=== PATIENT | female | born 1965 | race African-American/Black ===

== ENCOUNTER 2017-03-06 10:22 | Inpatient (IN) | payer BC ==
[2017-03-06 11:23] VITALS: BMI 33.3
--- NOTE | 2017-03-06 14:53 | HP ---
COWS - Scale Resting Pulse: 0= [place] 80 or Below Sweatin= No chills or Flushing Restless Observation: 3= Extraneous Movement Pupil Size: 2= Moderately Dilated Bone or Joint Aches: 4=Acute Joint/Muscle Pain Runny Nose/ Eye Tearin= Nasal Congestion GI Upset > 30mins: 2= Nausea/Diarrhea Tremor Observation: 1= Tremor [place], Not Seen Yawning Observation: 1= 1-2x During Session Anxiety or Irritability: 2=Irritable/Anxious Goose Flesh Skin: 0=Smooth Skin COWS Score: 16 CIWA Score - CIWA Score Nausea/Vomitin-Int. Nausea w/Dry Heave Muscle Tremors: 4-Moderate,w/Arms Extend Anxiety: 4-Mod. Anxious/Guarded Agitation: 4-Moderately Restless Paroxysmal Sweats: 1-Minimal Palms Moist Orientation: 0-Oriented Tacttile Disturbances: 3-Moderate Itch/Numb/Burn Auditory Disturbances: 0-None Visual Disturbances: 0-None Headache: 1-Very Mild CIWA-Ar Total Score: 21 Admission [facility] - HPI Chief Complaint: WITHDRAWAL SX FROM HEROIN AND ALCOHOL. Allergies/Adverse Reactions: Allergies Allergy/AdvReac Type Severity Reaction Status Date / Time dexamethasone [From Decadron] Allergy Severe Verified 03/06/17 12:10 dexamethasone sod phosphate Allergy Severe Verified 03/06/17 12:10 [From Decadron] History of Present Illness: 51 Y/O AA/FEMAL WITH A HX OF HEROIN,ALCOHOL AND COCAINE DEPENDENCE SEEKING DETOX [place]. Exam Limitations: No Limitations - Ebola screening Have you traveled outside of the country in the last 21 days: No Have you had contact with anyone from an Ebola affected area: No Have you been sick,other than usual withdrawal symptoms: No Do you have a fever: No - Review of Systems Constitutional: Chills, Loss of Appetite, Night Sweats, Changes in sleep, Unintentional Wgt. Loss EENT: reports: Tearing, Nose Congestion, Dental Problems (DENTURES) Respiratory: reports: Shortness of Breath (COPD HX), Wheezing Cardiac: reports: Lightheadedness GI: reports: Constipated, Diarrhea, Nausea, Vomiting, Abdominal cramping : reports: No Symptoms Reported Musculoskeletal: reports: Back Pain, Muscle Pain Integumentary: reports: Rash (DRY SKIN BETWEEN LEGS) Neuro: reports: Headache, Unsteady Gait, Dizziness Endocrine: reports: No Symptoms Reported Hematology: reports: Anemia (???) Psychiatric: reports: Orientated x3, Depressed (HX BIPOLAR) Other Systems: Reviewed and Negative Patient History - Patient Medical History Hx Anemia: Yes (NO MED) Hx Asthma: Yes (MDI) Hx Chronic Obstructive Pulmonary Disease (COPD): Yes (MDI) Hx Cardiac Disorders: No Hx Hypertension: No Hx Hypercholesterolemia: No HX Cerebrovascular Accident: No Hx Seizures: No (BLACKOUTS) Hx Diabetes: Yes (Type II-ON METFORMIN 500 MG BID) Hx Gastrointestinal Disorders: No Hx Genitourinary Disorders: No Hx Sexually Transmitted Disorders: No Hx Renal Disease (ESRD): Yes (KIDNEY STONES IN THE PAST) Hx Thyroid Disease: Yes (SYNTHROID 125 MCG DAILY) Hx Human Immunodeficiency Virus (HIV): No (NEGATIVE HX) Hx Hepatitis C: No Hx Depression: Yes Hx Suicide Attempt: No (DENIES) Hx Bipolar Disorder: Yes Hx Schizophrenia: No - Patient Surgical History Past Surgical History: Yes Hx Neurologic Surgery: No Hx Cataract Extraction: No Hx Cardiac Surgery: No Hx Lung Surgery: No Hx Breast Surgery: No Hx Breast Biopsy: No Hx Abdominal Surgery: No Hx Appendectomy: Yes (AT 13 YRS OLD) Hx Cholecystectomy: No Hx Genitourinary Surgery: No Hx Section: No Hx Orthopedic Surgery: No Hx Hysterectomy: No Anesthesia Reaction: No - PPD History Previous Implant?: Yes Documented Results: Negative w/o proof Implanted On Prior R Admission?: No PPD to be Administered?: Yes - Reproductive History Patient is a Female of Child Bearing Age (11 -55 yrs old): No LMP comment: 7 YRS AGO Patient : No - Smoking Cessation Smoking history: Current every day smoker Have you smoked in the past 12 months: Yes Aproximately how many cigarettes per day: 7 Hx Chewing Tobacco Use: No Initiated information on smoking cessation: Yes 'Breaking Loose' booklet given: 03/06/17 - Substance & Tx. History Hx Alcohol Use: Yes (TERRI/BEER) Hx Substance Use: Yes (HEROIN/COCAINE) Substance Use Type: Alcohol, Cocaine, Heroin Hx Substance Use Treatment: Yes (LAST TX AT [facility]) - Substances Abused Heroin Route: Inhalation Frequency: Daily Amount used: 10 BAGS Age of first use: 31 Date of Last Use: 03/06/17 Alcohol Route: Oral Frequency: Daily Amount used: 6PK BEER 1 FIFTH TERRI Age of first use: 41 Date of Last Use: 03/06/17 Cocaine Route: Smoking Frequency: Daily Amount used: 10 BAGS Age of first use: 31 Date of Last Use: 03/04/17 Family Disease History - Family Disease History Family Disease History: Diabetes: Father (HTN), Mother (HTN), Other: Father, Mother, Sister (ADDICTION) Admission Physical Exam [facility] - Vital Signs Vital Signs: Vital Signs - 24 hr 03/06/17 11:18 Temperature 96.0 F L Pulse Rate 73 Respiratory 18 Rate Blood Pressure 135/80 - Physical General Appearance: Yes: Moderate Distress, Irritable, Anxious HEENTM: Yes: EOMI, Normocephalic, RENEE, Pharynx Normal, Nasal Congestion Respiratory: Yes: Chest Non-Tender, Lungs Clear, Normal Breath Sounds, No Respiratory Distress Neck: Yes: No masses,lesions,Nodules, Supple, Trachea in good position Breast: Yes: Breast Exam Deferred Cardiology: Yes: Regular Rhythm, Regular Rate, S1, S2 Abdominal: Yes: Normal Bowel Sounds, Non Tender, Flat Genitourinary: Yes: Other (N/C) Musculoskeletal: Yes: full range of Motion, Gait Steady Extremities: Yes: Normal Range of Motion, Non-Tender Neurological: Yes: dietary cook II-XII NML intact, Fully Oriented, Alert, Motor Strength 5/5 Integumentary: Yes: Dry, Warm, Rash Lymphatic: Yes: Within Normal Limits - Diagnostic (1) Opioid dependence with withdrawal Current Visit: Yes Status: Acute (2) Alcohol dependence with uncomplicated withdrawal Current Visit: Yes Status: Acute (3) Cocaine dependence, uncomplicated Current Visit: Yes Status: Acute (4) COPD (chronic obstructive pulmonary disease) Current Visit: Yes Status: Chronic Qualifiers: COPD type: emphysema (5) Type 2 diabetes mellitus Current Visit: Yes Status: Chronic (6) Hypothyroidism Current Visit: Yes Status: Chronic Qualifiers: Hypothyroidism type: unspecified Qualified Code(s): E03.9 - Hypothyroidism , unspecified (7) Rash and nonspecific skin eruption Current Visit: Yes Status: Chronic Comment: THIGHS Cleared for Admission S - Detox or Rehab S Level of Care: Medically Managed Detox Regimen/Protocol: Methadone/Librium S Breath Alcohol Content Breath Alcohol Content: 0 Urine Pregancy Test - Result Urine Test Results: Negative- NO Line Present Urine Drug Screen - Results Drug Screen Negative: No Urine Drug Screen Results: IRIS-Cocaine, TCA-Tricyclic Antidepress, OXY-Oxycodone
[2017-03-06] MEDS ORDERED: guaiFENesin/D-METHORPHAN HB 10 ML UNIT-DOSE CUPS PO PRN (15:17)
[2017-03-06] MEDS ORDERED: LOPERAMIDE HCL 2 MG CAPSULE PO PRN (15:17)
[2017-03-06] MEDS ORDERED: P-EPHED 60MG/TRIPROLIDI 2.5MG TABLET PO PRN (15:17)
[2017-03-06] MEDS ORDERED: IBUPROFEN 400 MG TABLET (FP) PO PRN (15:17)
[2017-03-06] MEDS ORDERED: chlordiazePOXIDE HCL 25 MG CAPSULE PO PRN (15:17)
[2017-03-06] MEDS ORDERED: MENTHOL/PHENOL 1 EACH UD MM PRN (15:17)
[2017-03-06] MEDS ORDERED: MAG HYDROX/AL HYDROX/SIMETH 30 ML UNIT-DOSE CUP PO PRN (15:17)
[2017-03-06] MEDS ORDERED: MAGNESIUM HYDROX 2400MG/30ML ORAL SUSPENSION 30 ML CUP PO PRN (15:17)
[2017-03-06] MEDS ORDERED: ACETAMINOPHEN 325 MG TABLET (FP) PO PRN (15:17)
[2017-03-06] MEDS ORDERED: ALBUTEROL SO4 18 GM HFA INHALER IH PRN (15:19)
[2017-03-06] MEDS ORDERED: LEVOTHYROXINE NA 125 MCG TABLET (FP) PO SCH (15:30)
[2017-03-06] MEDS ORDERED: METHADONE HCL 10 MG TABLET (FOR DETOX USE ONLY) PO ONE ×2 (15:52→23:00)
[2017-03-06] MEDS ORDERED: chlordiazePOXIDE HCL 25 MG CAPSULE PO ONE (15:52)
[2017-03-06] MEDS ORDERED: LEVOTHYROXINE 100 MCG, LEVOTHYROXINE 25 MCG PO ONE (16:30)
[2017-03-06] MEDS ORDERED: LEVOTHYROXINE NA 25 MCG TABLET (FP) ONE (17:10)
[2017-03-06] MEDS ORDERED: LEVOTHYROXINE NA 100 MCG TABLET (FP) ONE (17:10)
[2017-03-06] MEDS: metFORMIN HCL 500 MG TABLET (FP) PO SCH (17:33)
[2017-03-06] MEDS: chlordiazePOXIDE HCL 25 MG CAPSULE PO SCH ×2 (17:34→22:42)
[2017-03-06] MEDS: NICOTINE 14 MG/24 HOURS TOPICAL PATCH TD SCH (17:35)
[2017-03-06] MEDS: THIAMINE HCL 100 MG TABLET (FP) PO SCH (22:43)
[2017-03-06] MEDS: MONTELUKAST NA 10 MG TABLET PO SCH (22:43)
[2017-03-06] MEDS: NYSTATIN/TRIAMCINOLONE TOPICAL CREAM 15 GM TUBE TP SCH (22:49)
[2017-03-07] MEDS ORDERED: LEVOTHYROXINE NA 25 MCG TABLET (FP) ONE (05:33)
[2017-03-07] MEDS ORDERED: LEVOTHYROXINE NA 100 MCG TABLET (FP) ONE (05:34)
[2017-03-07] MEDS: LEVOTHYROXINE 100 MCG, LEVOTHYROXINE 25 MCG PO SCH (06:08)
[2017-03-07] MEDS: chlordiazePOXIDE HCL 25 MG CAPSULE PO SCH ×4 (06:08→22:27)
[2017-03-07] MEDS: metFORMIN HCL 500 MG TABLET (FP) PO SCH ×2 (06:51→18:06)
--- NOTE | 2017-03-07 09:21 | EKG ---
Test Reason : Blood Pressure : / mmHG Vent. Rate : 064 BPM Atrial Rate : 064 BPM P-R Int : 166 ms QRS Dur : 082 ms QT Int : 496 ms P-R-T Axes : 054 064 019 degrees QTc Int : 511 ms NORMAL SINUS RHYTHM NONSPECIFIC T WAVE ABNORMALITY PROLONGED QT ABNORMAL ECG NO PREVIOUS ECGS AVAILABLE Confirmed by VERONICA LINCOLN MD ([id number]) on 03/07/2017 9:20:45 AM Referred By: Confirmed By:VERONICA LINCOLN MD
[2017-03-07] MEDS ORDERED: METHADONE HCL 10 MG TABLET (FOR DETOX USE ONLY) PO SCH (10:00)
[2017-03-07 10:14] LABS: MCH 33.3 pg (25.7-33.7); MCHC 32.8 g/dl (32.0-36.0); MEAN CELL VOLUME 101.5 fl (80-96); MEAN PLT VOLUME 10.1 fl (7.5-11.1); PLATELET COUNT 197 K/MM3 (134-434); RDW 15.3 % (11.6-15.6)
[2017-03-07 10:28] LABS: ALBUMIN 4.2 g/dl (3.4-5.0); ANION GAP 5 (8-16); BILIRUBIN,TOTAL 0.3 mg/dL (0.2-1.0); CO2 33 mmol/L (21-32); GLUCOSE,RANDOM 97 mg/dL (74-106); SGOT/AST 36 U/L (15-37); SGPT/ALT 28 U/L (12-78); TOT PROT 7.1 g/dl (6.4-8.2)
[2017-03-07 10:30] LABS: ALK PHOS 76 U/L (45-117); CALCIUM 8.6 mg/dL (8.5-10.1); CREATININE 1.3 mg/dL (0.55-1.02)
[2017-03-07] MEDS: NICOTINE 14 MG/24 HOURS TOPICAL PATCH TD SCH (10:43)
[2017-03-07] MEDS: MAGNESIUM CITRATE 300 ML BOTTLE PO PRN (10:44)
[2017-03-07] MEDS ORDERED: TRIMETHOBENZAMIDE HCL 200MG/2ML INJ IM PRN (10:47)
[2017-03-07] MEDS: NYSTATIN/TRIAMCINOLONE TOPICAL CREAM 15 GM TUBE TP SCH ×2 (10:48→22:26)
[2017-03-07] MEDS: PRENATAL VITAMINS W/ FOLIC ACID TABLET (FP) PO SCH (10:49)
[2017-03-07] MEDS ORDERED: TRIMETHOBENZAMIDE HCL 200MG/2ML INJ IM ONE (11:07)
[2017-03-07 11:33] LABS: SICKLE CELL SCREEN NEGATIVE (NEGATIVE)
--- NOTE | 2017-03-07 11:46 | CONSULT ---
[facility] Psychiatric Consult - Data Date of interview: 03/07/17 Admission source: [facility] Identifying data: Pt. is a 51 year old single female, mother of one, who is currently unemployed. This is patient's first admission at [facility]. Pt. admitted to detox for Cocaine, heroin, and alcohol dependence. Substance Abuse History: Following information confirmed by Ms. Mercado: Smoking Cessation. Smoking history: Current every day smoker. Have you smoked in the past 12 months: Yes. Aproximately how many cigarettes per day: 7. Hx Chewing Tobacco Use: No. Initiated information on smoking cessation: Yes. 'Breaking Loose' booklet given: 03/06/17. - Substance & Tx. History. Hx Alcohol Use: Yes (TERRI/BEER). Hx Substance Use: Yes (HEROIN/COCAINE). Substance Use Type : Alcohol, Cocaine, Heroin. Hx Substance Use Treatment: Yes (LAST TX AT [facility]OX). Heroin: Route: Inhalation Frequency: Daily. Amount used: 10 BAGS Age of first use: 31. Date of Last Use: 03/06/17. Alcohol: Route: Oral. Frequency: Daily Amount used: 6PK BEER 1 FIFTH TERRI. Age of first use: 41 Date of Last Use: 03/06/17. Cocaine: Route: Smoking Frequency: Daily. Amount used: 10 BAGS Age of first use: 31. Date of Last Use : 03/04/17 Medical History: Anemia, Asthma, Diabetes, hypothyroism, kidney stones in the past, and appendectomy at 13 years of age. Psychiatric History: Pt. reports a h/o multiple psychiatric hospitalizations with the most recent hospitalization at [facility] in [place] "many years ago. " Pt. also reports psychiatric hospitalizations at [facility] and [facility]. Pt. reports currently being prescribed Topamax, abilify, celexa, and ambien (as needed). Pt. stated she last took her medications on friday03/04/2017. Pt. refuses to resume her medication here. Stated to global technical writer , " I'll take my medications when i go back home." Pt. slightly irritable during interview and did not inform global technical writer of her former outpatient psychiatrist. Pt. denies h/o suicide attempt. Physical/Sexual Abuse/Trauma History: Pt. denies. Mental Status Exam - Mental Status Exam Alert and Oriented to: Time, Place, Person Cognitive Function: Good Patient Appearance: Well Groomed Mood: Withdrawn, Irritable (Pt. slightly irritable.) Affect: Flat Patient Behavior: Sedated Speech Pattern: Clear Voice Loudness: Normal Thought Process: Goal Oriented Thought Disorder: Not Present Hallucinations: Denies Suicidal Ideation: Denies Homicidal Ideation: Denies Insight/Judgement: Poor Sleep: Fair Appetite: Fair Muscle strength/Tone: Normal Gait/Station: Normal Psychiatric Findings - Problem List ([place] 1, 2,3) (1) Alcohol dependence with uncomplicated withdrawal Current Visit: Yes Status: Acute (2) Cocaine dependence, uncomplicated Current Visit: Yes Status: Acute (3) Opioid dependence with withdrawal Current Visit: Yes Status: Acute (4) Bipolar disorder Current Visit: No Status: Chronic Comment: Self reports. Pt. on several psychotropic medications but patient refuses to take them while in detox. (5) History of OCD (obsessive compulsive disorder) Current Visit: Yes Status: Chronic Comment: Self reports. Pt. on several psychotropic medications but patient refuses to take them while in detox. - Initial Treatment Plan Initial Treatment Plan: Psychoeducation provided. Detox in progress. Pt. refuses psychotrophic medications. Pt. informed of the importance of continuing to take her prescribed medications due to being at risk for violence, ava, depression, and suicidality. As per record, patient was given a prescription of Abilify, cogentin, mirtazapine, celexa, and topamax on 02/18/2017. Inletter asked patient again if she would like her medications ordered while at [facility] and patient responded, "didnt i just answer that question. No i dont." Will continue to monitor.
--- NOTE | 2017-03-07 11:47 | PN ---
[facility] CIWA - CIWA Score Nausea/Vomitin Muscle Tremors: 4-Moderate,w/Arms Extend Anxiety: 3 Agitation: 3 Paroxysmal Sweats: 3 Orientation: 0-Oriented Tacttile Disturbances: 0-None Auditory Disturbances: 0-None Visual Disturbances: 0-None Headache: 0-None Present CIWA-Ar Total Score: 16 [facility] COWS - Scale Resting Pulse: 0= [place] 80 or Below Sweatin=Flushed/Facial Moisture Restless Observation: 1= Difficult to Sit Still Pupil Size: 0= Normal to Room Light Bone or Joint Aches: 2= Severe Diffuse Aches Runny Nose/ Eye Tearin= Runny Nose/Eyes GI Upset > 30mins: 3= Vomiting/Diarrhea Tremor Observation of Outstretched Hands: 2= Slight Tremor Visible Yawning Observation: 2= >3x During Session Anxiety or Irritability: 2=Irritable/Anxious Goose Flesh Skin: 3=Piloerection COWS Score: 19 S Progress Note (SOAP) Subjective: nausea/vomiting sweats shakes irritable body aches interrupted sleep Objective: 03/07/17 11:41 Vital Signs Temperature 97.5 F L 03/07/17 11:28 Pulse Rate 57 L 03/07/17 11:28 Respiratory Rate 18 03/07/17 11:28 Blood Pressure 105/53 03/07/17 11:28 O2 Sat by Pulse Oximetry (%) Laboratory Tests 03/06/17 03/07/17 03/07/17 12:04 05:59 07:00 WBC 5.0 RBC 3.36 L Hgb 11.2 Hct 34.2 MCV 101.5 H MCH 33.3 MCHC 32.8 RDW 15.3 Plt Count 197 MPV 10.1 Sickle Cell Screen Negative Sodium Potassium Chloride Carbon Dioxide Anion Gap BUN Creatinine Creat Clearance w eGFR POC Glucometer 146 91 Random Glucose Calcium Total Bilirubin AST ALT Alkaline Phosphatase Total Protein Albumin RPR Titer 03/07/17 03/07/17 07:00 07:00 WBC RBC Hgb Hct MCV MCH MCHC RDW Plt Count MPV Sickle Cell Screen Sodium 140 Potassium 3.9 Chloride 102 Carbon Dioxide 33 H Anion Gap 5 L BUN 16 Creatinine 1.3 H Creat Clearance w eGFR 43.36 POC Glucometer Random Glucose 97 Calcium 8.6 Total Bilirubin 0.3 AST 36 ALT 28 Alkaline Phosphatase 76 Total Protein 7.1 Albumin 4.2 RPR Titer Nonreactive labs pending awake/alert ambulating no acute distress Assessment: 03/07/17 11:42 withdrawal sx Plan: increase fluids continue detox tigan IM prn
[2017-03-07 13:33] LABS: URINE APPEARANCE CLOUDY; URINE BILIRUBIN NEGATIVE (NEGATIVE); URINE BLOOD NEGATIVE (NEGATIVE); URINE COLOR DKYELLOW; URINE GLUCOSE (UA) NEGATIVE (NEGATIVE); URINE KETONE TRACE (NEGATIVE); URINE LEUK ESTERASE TRACE (NEGATIVE); URINE NITRITE NEGATIVE (NEGATIVE)
[2017-03-07 13:52] LABS: URINE PROTEIN 1+ (NEGATIVE)
[2017-03-07 14:02] LABS: URINE HYALINE CAST 3 /lpf; URINE MUCUS MODERATE; URINE RBC 3 /hpf (0-3); URINE WBC 11 /hpf (3-5)
[2017-03-07 17:21] LABS: URINE LEUK ESTERASE Negative (NEGATIVE)
[2017-03-07] MEDS: MONTELUKAST NA 10 MG TABLET PO SCH (22:27)
[2017-03-07] MEDS: THIAMINE HCL 100 MG TABLET (FP) PO SCH (22:27)
[2017-03-08] MEDS: chlordiazePOXIDE HCL 25 MG CAPSULE PO SCH ×2 (05:42→10:55)
[2017-03-08] MEDS ORDERED: LEVOTHYROXINE NA 100 MCG TABLET (FP) ONE (05:45)
[2017-03-08] MEDS ORDERED: LEVOTHYROXINE NA 25 MCG TABLET (FP) ONE (05:45)
[2017-03-08] MEDS: metFORMIN HCL 500 MG TABLET (FP) PO SCH ×2 (07:29→18:10)
[2017-03-08] MEDS: LEVOTHYROXINE 100 MCG, LEVOTHYROXINE 25 MCG PO SCH (07:30)
[2017-03-08] MEDS: NICOTINE POLACRILEX 2 MG GUM BC PRN ×3 (08:19→22:47)
[2017-03-08] MEDS: NYSTATIN/TRIAMCINOLONE TOPICAL CREAM 15 GM TUBE TP SCH ×2 (10:55→22:57)
[2017-03-08] MEDS: METHADONE HCL 5 MG TABLET (FOR DETOX USE ONLY) PO SCH (10:55)
[2017-03-08] MEDS: PRENATAL VITAMINS W/ FOLIC ACID TABLET (FP) PO SCH (10:55)
[2017-03-08] MEDS: NICOTINE 14 MG/24 HOURS TOPICAL PATCH TD SCH (11:04)
--- NOTE | 2017-03-08 11:17 | PN ---
[facility] CIWA - CIWA Score Nausea/Vomitin-Mild Nausea/No Vomiting Muscle Tremors: 3 Anxiety: 3 Agitation: 2 Paroxysmal Sweats: 3 Orientation: 0-Oriented Tacttile Disturbances: 1-Very Mild Itch/Numbness Auditory Disturbances: 0-None Visual Disturbances: 0-None Headache: 1-Very Mild CIWA-Ar Total Score: 14 [facility] COWS - Scale Resting Pulse: 0= [place] 80 or Below Sweatin= Chills/Flushing Restless Observation: 1= Difficult to Sit Still Pupil Size: 1= Pupils >than Normal Bone or Joint Aches: 1= Mild Discomfort Runny Nose/ Eye Tearin= Runny Nose/Eyes GI Upset > 30mins: 1= Stomach Cramp Tremor Observation of Outstretched Hands: 2= Slight Tremor Visible Yawning Observation: 1= 1-2x During Session Anxiety or Irritability: 2=Irritable/Anxious Goose Flesh Skin: 3=Piloerection COWS Score: 15 [facility] Progress Note (SOAP) Subjective: withdrawal sx Sweats tremulous Objective: 03/08/17 11:19 Vital Signs Temperature 97.3 F L 03/08/17 10:00 Pulse Rate 63 03/08/17 10:00 Respiratory Rate 18 03/08/17 10:00 Blood Pressure 124/78 03/08/17 10:00 O2 Sat by Pulse Oximetry (%) Laboratory Last Values WBC 5.0 K/mm3 (4.0-10.0) 03/07/17 07:00 RBC 3.36 M/mm3 (3.60-5.2) L 03/07/17 07:00 Hgb 11.2 GM/dL (10.7-15.3) 03/07/17 07:00 Hct 34.2 % (32.4-45.2) 03/07/17 07:00 MCV 101.5 fl (80-96) H 03/07/17 07:00 MCH 33.3 pg (25.7-33.7) 03/07/17 07:00 MCHC 32.8 g/dl (32.0-36.0) 03/07/17 07:00 RDW 15.3 % (11.6-15.6) 03/07/17 07:00 Plt Count 197 K/MM3 (134-434) 03/07/17 07:00 MPV 10.1 fl (7.5-11.1) 03/07/17 07:00 Sickle Cell Screen Negative (NEGATIVE) 03/07/17 07:00 Sodium 140 mmol/L (136-145) 03/07/17 07:00 Potassium 3.9 mmol/L (3.5-5.1) 03/07/17 07:00 Chloride 102 mmol/L (98-107) 03/07/17 07:00 Carbon Dioxide 33 mmol/L (21-32) H 03/07/17 07:00 Anion Gap 5 (8-16) L 03/07/17 07:00 BUN 16 mg/dL (7-18) 03/07/17 07:00 Creatinine 1.3 mg/dL (0.55-1.02) H 03/07/17 07:00 Creat Clearance w eGFR 43.36 (>60) 03/07/17 07:00 POC Glucometer 107 UNITS (80-120) 03/08/17 05:42 Random Glucose 97 mg/dL (74-106) 03/07/17 07:00 Calcium 8.6 mg/dL (8.5-10.1) 03/07/17 07:00 Total Bilirubin 0.3 mg/dL (0.2-1.0) 03/07/17 07:00 AST 36 U/L (15-37) 03/07/17 07:00 ALT 28 U/L (12-78) 03/07/17 07:00 Alkaline Phosphatase 76 U/L (45-117) 03/07/17 07:00 Total Protein 7.1 g/dl (6.4-8.2) 03/07/17 07:00 Albumin 4.2 g/dl (3.4-5.0) 03/07/17 07:00 Urine Color Dkyellow 03/07/17 10:30 Urine Appearance Cloudy 03/07/17 10:30 Urine pH 5.0 (5.0-8.0) 03/07/17 10:30 Ur Specific [place] 1.032 (1.001-1.035) 03/07/17 10:30 Urine Protein 1+ (NEGATIVE) H 03/07/17 10:30 Urine Glucose (UA) Negative (NEGATIVE) 03/07/17 10:30 Urine Ketones Trace (NEGATIVE) H 03/07/17 10:30 Urine Blood Negative (NEGATIVE) 03/07/17 10:30 Urine Nitrite Negative (NEGATIVE) 03/07/17 10:30 Urine Bilirubin Negative (NEGATIVE) 03/07/17 10:30 Urine Urobilinogen 2.0 mg/dL (0.2-1.0) H 03/07/17 10:30 Ur Leukocyte Esterase Negative (NEGATIVE) 03/07/17 10:30 Urine WBC (Auto) 11 /hpf (3-5) 03/07/17 10:30 Urine RBC (Auto) 3 /hpf (0-3) 03/07/17 10:30 Ur Epithelial Cells Moderate /HPF (FEW) 03/07/17 10:30 Hyaline Casts 3 /lpf 03/07/17 10:30 Urine Mucus Moderate 03/07/17 10:30 RPR Titer Nonreactive (NONREACTIVE) 03/07/17 07:00 labs noted Assessment: 03/08/17 11:20 A & O x 3 sleepy and arousable no acute distress Plan: continue detox
[2017-03-08] MEDS: chlordiazePOXIDE 5 MG CAPSULE PO SCH ×2 (18:09→22:45)
[2017-03-08] MEDS: THIAMINE HCL 100 MG TABLET (FP) PO SCH (22:45)
[2017-03-08] MEDS: MONTELUKAST NA 10 MG TABLET PO SCH (22:45)
[2017-03-09] MEDS ORDERED: LEVOTHYROXINE NA 100 MCG TABLET (FP) ONE (05:19)
[2017-03-09] MEDS ORDERED: LEVOTHYROXINE NA 25 MCG TABLET (FP) ONE (05:19)
[2017-03-09] MEDS: chlordiazePOXIDE 5 MG CAPSULE PO SCH ×2 (06:39→11:00)
[2017-03-09] MEDS: LEVOTHYROXINE 100 MCG, LEVOTHYROXINE 25 MCG PO SCH (06:40)
[2017-03-09] MEDS: metFORMIN HCL 500 MG TABLET (FP) PO SCH ×2 (06:40→17:52)
[2017-03-09] MEDS: MAGNESIUM CITRATE 300 ML BOTTLE PO PRN (07:56)
[2017-03-09] MEDS: METHADONE HCL 5 MG TABLET (FOR DETOX USE ONLY) PO SCH (11:00)
[2017-03-09] MEDS: PRENATAL VITAMINS W/ FOLIC ACID TABLET (FP) PO SCH (11:00)
[2017-03-09] MEDS: NYSTATIN/TRIAMCINOLONE TOPICAL CREAM 15 GM TUBE TP SCH ×2 (11:01→22:42)
[2017-03-09] MEDS: NICOTINE 14 MG/24 HOURS TOPICAL PATCH TD SCH (11:01)
--- NOTE | 2017-03-09 12:31 | PN ---
[facility] Progress Note (SOAP) Subjective: body ache sweating tremor Objective: 03/09/17 12:31 Vital Signs Temperature 96.1 F L 03/09/17 10:00 Pulse Rate 69 03/09/17 10:00 Respiratory Rate 20 03/09/17 10:00 Blood Pressure 130/80 03/09/17 10:00 O2 Sat by Pulse Oximetry (%) Laboratory Last Values WBC 5.0 K/mm3 (4.0-10.0) 03/07/17 07:00 RBC 3.36 M/mm3 (3.60-5.2) L 03/07/17 07:00 Hgb 11.2 GM/dL (10.7-15.3) 03/07/17 07:00 Hct 34.2 % (32.4-45.2) 03/07/17 07:00 MCV 101.5 fl (80-96) H 03/07/17 07:00 MCH 33.3 pg (25.7-33.7) 03/07/17 07:00 MCHC 32.8 g/dl (32.0-36.0) 03/07/17 07:00 RDW 15.3 % (11.6-15.6) 03/07/17 07:00 Plt Count 197 K/MM3 (134-434) 03/07/17 07:00 MPV 10.1 fl (7.5-11.1) 03/07/17 07:00 Sickle Cell Screen Negative (NEGATIVE) 03/07/17 07:00 Sodium 140 mmol/L (136-145) 03/07/17 07:00 Potassium 3.9 mmol/L (3.5-5.1) 03/07/17 07:00 Chloride 102 mmol/L (98-107) 03/07/17 07:00 Carbon Dioxide 33 mmol/L (21-32) H 03/07/17 07:00 Anion Gap 5 (8-16) L 03/07/17 07:00 BUN 16 mg/dL (7-18) 03/07/17 07:00 Creatinine 1.3 mg/dL (0.55-1.02) H 03/07/17 07:00 Creat Clearance w eGFR 43.36 (>60) 03/07/17 07:00 POC Glucometer 116 UNITS (80-120) 03/09/17 06:39 Random Glucose 97 mg/dL (74-106) 03/07/17 07:00 Calcium 8.6 mg/dL (8.5-10.1) 03/07/17 07:00 Total Bilirubin 0.3 mg/dL (0.2-1.0) 03/07/17 07:00 AST 36 U/L (15-37) 03/07/17 07:00 ALT 28 U/L (12-78) 03/07/17 07:00 Alkaline Phosphatase 76 U/L (45-117) 03/07/17 07:00 Total Protein 7.1 g/dl (6.4-8.2) 03/07/17 07:00 Albumin 4.2 g/dl (3.4-5.0) 03/07/17 07:00 Urine Color Dkyellow 03/07/17 10:30 Urine Appearance Cloudy 03/07/17 10:30 Urine pH 5.0 (5.0-8.0) 03/07/17 10:30 Ur Specific [place] 1.032 (1.001-1.035) 03/07/17 10:30 Urine Protein 1+ (NEGATIVE) H 03/07/17 10:30 Urine Glucose (UA) Negative (NEGATIVE) 03/07/17 10:30 Urine Ketones Trace (NEGATIVE) H 03/07/17 10:30 Urine Blood Negative (NEGATIVE) 03/07/17 10:30 Urine Nitrite Negative (NEGATIVE) 03/07/17 10:30 Urine Bilirubin Negative (NEGATIVE) 03/07/17 10:30 Urine Urobilinogen 2.0 mg/dL (0.2-1.0) H 03/07/17 10:30 Ur Leukocyte Esterase Negative (NEGATIVE) 03/07/17 10:30 Urine WBC (Auto) 11 /hpf (3-5) 03/07/17 10:30 Urine RBC (Auto) 3 /hpf (0-3) 03/07/17 10:30 Ur Epithelial Cells Moderate /HPF (FEW) 03/07/17 10:30 Hyaline Casts 3 /lpf 03/07/17 10:30 Urine Mucus Moderate 03/07/17 10:30 RPR Titer Nonreactive (NONREACTIVE) 03/07/17 07:00 lab noted Assessment: 03/09/17 12:31 withdrawal sx Plan: continue detox
[2017-03-09] MEDS: chlordiazePOXIDE HCL 10 MG CAPSULE PO SCH ×2 (17:52→22:41)
[2017-03-09] MEDS: THIAMINE HCL 100 MG TABLET (FP) PO SCH (22:41)
[2017-03-09] MEDS: MONTELUKAST NA 10 MG TABLET PO SCH (22:41)
[2017-03-10] MEDS ORDERED: LEVOTHYROXINE NA 25 MCG TABLET (FP) ONE (04:08)
[2017-03-10] MEDS ORDERED: LEVOTHYROXINE NA 100 MCG TABLET (FP) ONE (04:09)
[2017-03-10] MEDS: metFORMIN HCL 500 MG TABLET (FP) PO SCH ×2 (06:44→18:22)
[2017-03-10] MEDS: LEVOTHYROXINE 100 MCG, LEVOTHYROXINE 25 MCG PO SCH (06:44)
[2017-03-10] MEDS: chlordiazePOXIDE HCL 10 MG CAPSULE PO SCH ×2 (06:44→11:11)
[2017-03-10] MEDS ORDERED: METHADONE HCL 10 MG TABLET (FOR DETOX USE ONLY) PO SCH (10:00)
[2017-03-10] MEDS: PRENATAL VITAMINS W/ FOLIC ACID TABLET (FP) PO SCH (11:10)
[2017-03-10] MEDS: NYSTATIN/TRIAMCINOLONE TOPICAL CREAM 15 GM TUBE TP SCH ×2 (11:11→22:32)
[2017-03-10] MEDS: NICOTINE 14 MG/24 HOURS TOPICAL PATCH TD SCH (11:11)
--- NOTE | 2017-03-10 11:13 | PN ---
[facility] Progress Note (SOAP) Subjective: feeling better little sweats tired Objective: 03/10/17 11:13 Vital Signs Temperature 98 F 03/10/17 10:46 Pulse Rate 75 03/10/17 10:46 Respiratory Rate 18 03/10/17 10:46 Blood Pressure 121/75 03/10/17 10:46 O2 Sat by Pulse Oximetry (%) aaox3 ambulating no acute distress Assessment: 03/10/17 11:13 mild withdrawal sx Plan: continue detox increase fluids d/c in am
[2017-03-10] MEDS: NICOTINE POLACRILEX 2 MG GUM BC PRN (13:20)
[2017-03-10] MEDS: MONTELUKAST NA 10 MG TABLET PO SCH (22:33)
[2017-03-10] MEDS: THIAMINE HCL 100 MG TABLET (FP) PO SCH (22:33)
[2017-03-11] MEDS ORDERED: LEVOTHYROXINE NA 25 MCG TABLET (FP) ONE (04:28)
[2017-03-11] MEDS ORDERED: LEVOTHYROXINE NA 100 MCG TABLET (FP) ONE (04:28)
[2017-03-11] MEDS ORDERED: METHADONE HCL 5 MG TABLET (FOR DETOX USE ONLY) PO SCH (06:00)
[2017-03-11] MEDS: metFORMIN HCL 500 MG TABLET (FP) PO SCH (06:06)
[2017-03-11] MEDS: LEVOTHYROXINE 100 MCG, LEVOTHYROXINE 25 MCG PO SCH (06:06)
[2017-03-11 06:30] VITALS: BP 123/73; PULSE 65; TEMP 97.7
--- NOTE | 2017-03-11 09:07 | DS ---
[facility] Detox Discharge Summary Admission Date: 03/06/17 Discharge Date: 03/11/17 - History Present History: Alcohol Dependence, Cocaine Dependence, Opioid Dependence - Physical Exam Results Vital Signs: Vital Signs Temperature 97.7 F 03/11/17 06:29 Pulse Rate 65 03/11/17 06:29 Respiratory Rate 16 03/11/17 06:29 Blood Pressure 123/73 03/11/17 06:29 O2 Sat by Pulse Oximetry (%) - Treatment Hospital Course: Detox Protocol Followed, Detoxed Safely, Responded well, Discharged Condition Good, Rehab Referral Accepted - Medication Discharge Medications: Ambulatory Orders Albuterol Sulfate Inhaler - [Ventolin Hfa Inhaler -] 2 inh PO Q4H PRN 03/06/17 Levothyroxine [Synthroid -] 125 mcg PO DAILY 03/06/17 Metformin HCl [Glucophage -] 500 mg PO BID 03/06/17 Montelukast Na [Singulair -] 10 mg PO HS 03/06/17 - Diagnosis (1) Alcohol dependence with uncomplicated withdrawal Current Visit: Yes Status: Chronic (2) Cocaine dependence, uncomplicated Current Visit: Yes Status: Chronic (3) Opioid dependence with withdrawal Current Visit: Yes Status: Chronic (4) COPD (chronic obstructive pulmonary disease) Current Visit: Yes Status: Chronic Qualifiers: COPD type: emphysema (5) Hypothyroidism Current Visit: Yes Status: Chronic Qualifiers: Hypothyroidism type: unspecified Qualified Code(s): E03.9 - Hypothyroidism , unspecified (6) Rash and nonspecific skin eruption Current Visit: Yes Status: Chronic (7) Type 2 diabetes mellitus Current Visit: Yes Status: Chronic Qualifiers: Diabetes mellitus complication status: without complication - AMA Did Patient Leave Against Medical Advice: No
[2017-03-11] MEDS: NICOTINE POLACRILEX 2 MG GUM BC PRN (09:38)
[2017-03-11] MEDS: NYSTATIN/TRIAMCINOLONE TOPICAL CREAM 15 GM TUBE TP SCH (10:39)
[2017-03-11] MEDS: NICOTINE 14 MG/24 HOURS TOPICAL PATCH TD SCH (10:40)
[2017-03-11] MEDS: PRENATAL VITAMINS W/ FOLIC ACID TABLET (FP) PO SCH (10:40)
== END 2017-03-11 09:41 | disposition home or self-care (01) | DRG 773 ==
LOC: YASAS 10:22 → Y6N 12:48
PROVIDERS: ADMIT Internal Medicine; ATTEND Internal Medicine
PROC: HZ2ZZZZ Detoxification Services for Substance Abuse Treatment (ICD-10-PCS; principal; 2017-03-06)
DX: F11.23 Opioid dependence with withdrawal (principal); F10.230 Alcohol dependence with withdrawal, uncomplicated; F14.20 Cocaine dependence, uncomplicated; F17.210 Nicotine dependence, cigarettes, uncomplicated; F31.9 Bipolar disorder, unspecified; F42.9 Obsessive-compulsive disorder, unspecified; J44.9 Chronic obstructive pulmonary disease, unspecified; E03.9 Hypothyroidism, unspecified; E11.9 Type 2 diabetes mellitus without complications; R21 Rash and other nonspecific skin eruption; Z88.8 Allergy status to other drugs, medicaments and biological substances; Z86.2 Personal history of diseases of the blood and blood-forming organs and certain disorders involving the immune mechanism; Z87.442 Personal history of urinary calculi
CPT/HCPCS: 36415; 80053; 81003; 81015; 85027; 85660; 86593; 93005; 93010

== ENCOUNTER 2018-08-06 09:14 | Inpatient (IN) | payer BC ==
[2018-08-06 09:32] VITALS: BMI 34.2
--- NOTE | 2018-08-06 11:31 | HP ---
CIWA Score Nausea/Vomitin Muscle Tremors: 2 Anxiety: 3 Agitation: 2 Paroxysmal Sweats: 1-Minimal Palms Moist Orientation: 0-Oriented Tacttile Disturbances: 1-Very Mild Itch/Numbness Auditory Disturbances: 1-Very Mild Visual Disturbances: 0-None Headache: 2-Mild CIWA-Ar Total Score: 14 - Admission Criteria [facility] Guidelines: Admission for Medically Managed Detox: Requires at least one of the followin. CIWA greater than 12 2. Seizures within the past 24 hours 3. Delirium tremens within the past 24 hours 4. Hallucinations within the past 24 hours 5. Acute intervention needed for co occurring medical disorder 6. Acute intervention needed for co occurring psychiatric disorder 7. Severe withdrawal that cannot be handled at a lower level of care (continued vomiting, continued diarrhea, abnormal vital signs) requiring intravenous medication and/or fluids 8. Admission ROS S - HPI Chief Complaint: i need help to stop drinking alcohol,cocaine,heroin abused,seeking detox, withdrawal symptom had previous admission Allergies/Adverse Reactions: Allergies Allergy/AdvReac Type Severity Reaction Status Date / Time dexamethasone [From Decadron] Allergy Severe Verified 08/06/18 09:23 dexamethasone sod phosphate Allergy Severe Verified 08/06/18 09:23 [From Decadron] History of Present Illness: this 53 years old female with alcohol,cocaine dependence,heroin abused, withdrawal symptom,last detox 03/06/17 to 03/11/17 history of type 2 dm,hypothyroidism,asthma fasciitis of right foot,tendinitis nicotine dependence 7 cigarette would like to have nicotine patch and gum eczema Exam Limitations: No Limitations - Ebola screening Have you traveled outside of the country in the last 21 days: No (N) Have you had contact with anyone from an Ebola affected area: No Do you have a fever: No - Review of Systems Constitutional: Chills, Loss of Appetite, Malaise, Night Sweats, Changes in sleep, Weakness EENT: reports: Nose Congestion Respiratory: reports: No Symptoms reported, Other (astma) Cardiac: reports: No Symptoms Reported GI: reports: Nausea, Poor Appetite, Abdominal cramping : reports: No Symptoms Reported Musculoskeletal: reports: Back Pain, Muscle Pain Integumentary: reports: Dryness Neuro: reports: Headache, Tremors Endocrine: reports: No Symptoms Reported Hematology: reports: No Symptoms Reported Psychiatric: reports: No Sypmtoms Reported, Judgement Intact, Mood/Affect Appropiate, Orientated x3 Other Systems: Reviewed and Negative Patient History - Patient Medical History Hx Anemia: Yes (NO MED) Hx Asthma: Yes (MDI) Hx Chronic Obstructive Pulmonary Disease (COPD): Yes (MDI) Hx Cardiac Disorders: No Hx Hypertension: No Hx Hypercholesterolemia: No HX Cerebrovascular Accident: No Hx Seizures: No (BLACKOUTS) Hx Diabetes: Yes (Type II-ON METFORMIN 500 MG BID) Hx Gastrointestinal Disorders: No Hx Genitourinary Disorders: No Hx Sexually Transmitted Disorders: No Hx Renal Disease (ESRD): No Hx Thyroid Disease: Yes (SYNTHROID 125 MCG DAILY) Hx Human Immunodeficiency Virus (HIV): No (NEGATIVE HX last 01/08) Hx Hepatitis C: No Hx Depression: No Hx Suicide Attempt: No (DENIES) Hx Bipolar Disorder: No Hx Schizophrenia: No Other Medical History: no suicidal,no homicidal - Patient Surgical History Past Surgical History: Yes Hx Neurologic Surgery: No Hx Cataract Extraction: No Hx Cardiac Surgery: No Hx Lung Surgery: No Hx Breast Surgery: No Hx Breast Biopsy: No Hx Abdominal Surgery: No Hx Appendectomy: Yes (AT 13 YRS OLD) Hx Cholecystectomy: No Hx Genitourinary Surgery: No Hx Section: No Hx Orthopedic Surgery: No Hx Hysterectomy: No Anesthesia Reaction: No - PPD History Previous Implant?: Yes Date: 03/08/17 PPD to be Administered?: Yes - Reproductive History Patient is a Female of Child Bearing Age (11 -55 yrs old): Yes Patient : No - Smoking Cessation Smoking history: Current every day smoker Have you smoked in the past 12 months: Yes Aproximately how many cigarettes per day: 7 Hx Chewing Tobacco Use: No Initiated information on smoking cessation: Yes 'Breaking Loose' booklet given: 08/06/18 - Substance & Tx. History Hx Alcohol Use: Yes Hx Substance Use: Yes Substance Use Type: Alcohol, Cocaine, Heroin Hx Substance Use Treatment: Yes (PW03/06/17 to 03/11/17) - Substances abused Alcohol Substance route: Oral Frequency: Daily Amount used: TERRI- 1 GAL AND 5 BEER- 24OZ Age of first use: 41 Date of last use: 08/06/18 Heroin Substance route: Inhalation Frequency: Daily Amount used: 6BAGS Age of first use: 31 Date of last use: 08/05/18 Cocaine Substance route: Inhalation Frequency: Daily Amount used: 6BAGS Age of first use: 21 Date of last use: 08/06/18 Family Disease History - Family Disease History Family Disease History: Diabetes: Father (HTN), Mother (HTN), Other: Father, Mother, Sister (ADDICTION) Admission Physical Exam [facility] - Vital Signs Vital Signs: Vital Signs - 24 hr 08/06/18 09:17 Temperature 98 F Pulse Rate 77 Respiratory 18 Rate Blood Pressure 140/90 - Physical General Appearance: Yes: Moderate Distress, Tremorous, Irritable, Sweating, Anxious HEENTM: Yes: Normal ENT Inspection, RENEE, Nasal Congestion Respiratory: Yes: Lungs Clear, Normal Breath Sounds, No Respiratory Distress Neck: Yes: Within Normal Limits, Supple, Trachea in good position Breast: Yes: Breast Exam Deferred Cardiology: Yes: Within Normal Limits, Regular Rhythm, Regular Rate, S1, S2 Abdominal: Yes: Within Normal Limits, Normal Bowel Sounds, Non Tender, Flat, Soft Genitourinary: Yes: Within Normal Limits Back: Yes: Muscle Spasm Musculoskeletal: Yes: full range of Motion, Back pain, Muscle Pain Extremities: Yes: Normal Range of Motion, Tremors, Other (painon right foot tendinitis) Neurological: Yes: corporate banking officer II-XII NML intact, Fully Oriented, Alert, Motor Strength 5/5 Integumentary: Yes: Dry Lymphatic: Yes: Within Normal Limits - Diagnostic (1) Alcohol dependence with uncomplicated withdrawal Current Visit: No Status: Chronic (2) Asthma Current Visit: No Status: Acute (3) Cocaine dependence, uncomplicated Current Visit: No Status: Chronic (4) Hypothyroidism Current Visit: No Status: Chronic Qualifiers: Hypothyroidism type: unspecified Qualified Code(s): E03.9 - Hypothyroidism , unspecified (5) Type 2 diabetes mellitus Current Visit: No Status: Chronic Qualifiers: Diabetes mellitus complication status: without complication (6) Eczema Current Visit: No Status: Acute (7) Tendinitis of right foot Current Visit: No Status: Acute (8) Use of cane as ambulatory aid Current Visit: No Status: Acute (9) History of herpes simplex infection Current Visit: No Status: Acute (10) Heroin abuse Current Visit: Yes Status: Acute Cleared for Admission [facility] - Detox or Rehab [facility] Level of Care: Medically Managed (urine for drug screen showed positive in cocaine) Detox Regimen/Protocol: Librium Breathalyzer - Breathalyzer Breathalyzer: 0.015 Urine Drug Screen - Test Device Lot number: [id number] Expiration date: 04/23/20 - Control Is test valid?: Yes - Results Drug screen NEGATIVE: No Urine drug screen results: [facility]-Cocaine Inpatient Rehab Admission - Rehab Decision to Admit Inpatient rehab admission?: No
[2018-08-06] MEDS ORDERED: chlordiazePOXIDE HCL 25 MG CAPSULE PO PRN (11:43)
[2018-08-06] MEDS ORDERED: ALBUTEROL SO4 8 GM HFA INHALER IH PRN (11:44)
[2018-08-06] MEDS: valACYclovir HCL 500 MG TABLET (FP) PO SCH ×2 (12:22→22:30)
[2018-08-06] MEDS: TRIAMCINOLONE ACET 0.5% CREAM 15 GM TUBE TP SCH ×2 (13:24→22:30)
[2018-08-06] MEDS: metFORMIN HCL 500 MG TABLET (FP) PO SCH (18:02)
[2018-08-06] MEDS: chlordiazePOXIDE HCL 25 MG CAPSULE PO SCH ×2 (18:03→22:30)
[2018-08-06] MEDS ORDERED: MONTELUKAST NA 10 MG TABLET PO SCH (22:00)
[2018-08-06] MEDS: NAPROXEN 500 MG TABLET (FP) PO SCH (22:30)
[2018-08-06] MEDS: MONTELUKAST NA 10 MG TABLET PO SCH (22:31)
[2018-08-07] MEDS: LEVOTHYROXINE 25 MCG, LEVOTHYROXINE 100 MCG PO SCH (06:54)
[2018-08-07] MEDS: chlordiazePOXIDE HCL 25 MG CAPSULE PO SCH ×4 (06:54→22:25)
[2018-08-07] MEDS: metFORMIN HCL 500 MG TABLET (FP) PO SCH ×2 (06:54→16:59)
[2018-08-07] MEDS ORDERED: LEVOTHYROXINE NA 125 MCG TABLET (FP) PO SCH (10:00)
[2018-08-07] MEDS: valACYclovir HCL 500 MG TABLET (FP) PO SCH ×2 (10:21→22:26)
[2018-08-07] MEDS: NAPROXEN 500 MG TABLET (FP) PO SCH ×2 (10:22→22:26)
[2018-08-07] MEDS: TRIAMCINOLONE ACET 0.5% CREAM 15 GM TUBE TP SCH ×3 (11:05→22:25)
--- NOTE | 2018-08-07 11:21 | PN ---
S CIWA - CIWA Score Nausea/Vomitin-No Nausea/No Vomiting Muscle Tremors: 3 Anxiety: 2 Agitation: 2 Paroxysmal Sweats: 3 Orientation: 0-Oriented Tacttile Disturbances: 0-None Auditory Disturbances: 0-None Visual Disturbances: 0-None Headache: 0-None Present CIWA-Ar Total Score: 10 BHS Progress Note (SOAP) Subjective: shakes sweats agitation anxiety body aches Objective: 08/07/18 11:21 Vital Signs Temperature 98.2 F 08/07/18 09:17 Pulse Rate 74 08/07/18 09:17 Respiratory Rate 18 08/07/18 09:17 Blood Pressure 124/66 08/07/18 09:17 O2 Sat by Pulse Oximetry (%) Laboratory Tests 08/06/18 08/06/18 08/06/18 09:52 11:42 16:40 POC Glucometer 125 141 POC Urine HCG, Qual Negative 08/07/18 06:53 POC Glucometer 106 POC Urine HCG, Qual rest of labs pending aaox3 ambulating no acute distress Assessment: 08/07/18 11:28 withdrawal sx Plan: continue detox increase fluids
[2018-08-07 16:10] LABS: BASO % 1.2 % (0-2.0); EOS % 4.5 % (0-4.5); HEMATOCRIT 38.1 % (32.4-45.2); HEMOGLOBIN 12.4 GM/dL (10.7-15.3); LYMPH % 36.5 % (8-40); MCH 32.3 pg (25.7-33.7); MCHC 32.5 g/dl (32.0-36.0); MEAN CELL VOLUME 99.4 fl (80-96); MEAN PLT VOLUME 11.1 fl (7.5-11.1); MONO % 7.4 % (3.8-10.2); NEUT % 50.4 % (42.8-82.8); RBC 3.84 M/mm3 (3.60-5.2); WHITE BLOOD COUNT 4.9 K/mm3 (4.0-10.0)
[2018-08-07 16:42] LABS: ALBUMIN 4.3 g/dl (3.4-5.0); BILIRUBIN,TOTAL 0.4 mg/dL (0.2-1); CALCIUM 8.9 mg/dL (8.5-10.1); CREATININE 1.3 mg/dL (0.55-1.3); TOT PROT 7.2 g/dl (6.4-8.2)
[2018-08-07 16:43] LABS: POTASSIUM 3.9 mmol/L (3.5-5.1)
[2018-08-07 16:56] LABS: PLATELET COUNT 253 K/MM3 (134-434); PLATELET ESTIMATE ADEQUATE
[2018-08-07] MEDS: MONTELUKAST NA 10 MG TABLET PO SCH (22:26)
[2018-08-08] MEDS: chlordiazePOXIDE HCL 25 MG CAPSULE PO SCH ×2 (06:06→10:38)
[2018-08-08] MEDS: LEVOTHYROXINE 25 MCG, LEVOTHYROXINE 100 MCG PO SCH (06:06)
[2018-08-08] MEDS: metFORMIN HCL 500 MG TABLET (FP) PO SCH ×2 (06:11→18:00)
[2018-08-08] MEDS: valACYclovir HCL 500 MG TABLET (FP) PO SCH ×2 (10:38→22:48)
[2018-08-08] MEDS: TRIAMCINOLONE ACET 0.5% CREAM 15 GM TUBE TP SCH ×2 (10:38→22:48)
[2018-08-08] MEDS: NAPROXEN 500 MG TABLET (FP) PO SCH ×2 (10:38→22:48)
--- NOTE | 2018-08-08 11:05 | PN ---
S CIWA - CIWA Score Nausea/Vomitin-No Nausea/No Vomiting Muscle Tremors: 2 Anxiety: 2 Agitation: 1-Slight > Activity Paroxysmal Sweats: 2 Orientation: 0-Oriented Tacttile Disturbances: 0-None Auditory Disturbances: 0-None Visual Disturbances: 0-None Headache: 2-Mild CIWA-Ar Total Score: 9 BHS Progress Note (SOAP) Subjective: c/o mild headache, sweats, anxiety, and tremor. Objective: 08/08/18 11:01 Vital Signs 08/08/18 08/08/18 08/08/18 03:30 06:00 09:33 Temperature 97.3 F L 98.9 F Pulse Rate 68 74 Respiratory 18 18 18 Rate Blood Pressure 154/91 138/87 Laboratory Last Values WBC 4.9 K/mm3 (4.0-10.0) 08/07/18 08:50 RBC 3.84 M/mm3 (3.60-5.2) 08/07/18 08:50 Hgb 12.4 GM/dL (10.7-15.3) 08/07/18 08:50 Hct 38.1 % (32.4-45.2) 08/07/18 08:50 MCV 99.4 fl (80-96) H 08/07/18 08:50 MCH 32.3 pg (25.7-33.7) 08/07/18 08:50 MCHC 32.5 g/dl (32.0-36.0) 08/07/18 08:50 RDW 17.0 % (11.6-15.6) H 08/07/18 08:50 Plt Count 253 K/MM3 (134-434) D 08/07/18 08:50 MPV 11.1 fl (7.5-11.1) 08/07/18 08:50 Absolute Neuts (auto) 2.5 K/mm3 (1.5-8.0) 08/07/18 08:50 Neutrophils % 50.4 % (42.8-82.8) 08/07/18 08:50 Lymphocytes % 36.5 % (8-40) 08/07/18 08:50 Monocytes % 7.4 % (3.8-10.2) 08/07/18 08:50 Eosinophils % 4.5 % (0-4.5) 08/07/18 08:50 Basophils % 1.2 % (0-2.0) 08/07/18 08:50 Nucleated RBC % 0 % (0-0) 08/07/18 08:50 Platelet Estimate Adequate 08/07/18 08:50 Platelet Comment No clumping noted 08/07/18 08:50 Sodium 144 mmol/L (136-145) 08/07/18 08:50 Potassium 3.9 mmol/L (3.5-5.1) 08/07/18 08:50 Chloride 107 mmol/L (98-107) 08/07/18 08:50 Carbon Dioxide 26 mmol/L (21-32) 08/07/18 08:50 Anion Gap 11 MMOL/L (8-16) 08/07/18 08:50 BUN 12 mg/dL (7-18) 08/07/18 08:50 Creatinine 1.3 mg/dL (0.55-1.3) 08/07/18 08:50 Est GFR (CKD-EPI)AfAm 54.62 08/07/18 08:50 Est GFR (CKD-EPI)NonAf 47.13 08/07/18 08:50 POC Glucometer 122 UNITS (80-120) 08/08/18 06:10 Random Glucose 105 mg/dL (74-106) 08/07/18 08:50 Calcium 8.9 mg/dL (8.5-10.1) 08/07/18 08:50 Total Bilirubin 0.4 mg/dL (0.2-1) 08/07/18 08:50 AST 20 U/L (15-37) 08/07/18 08:50 ALT 20 U/L (13-61) 08/07/18 08:50 Alkaline Phosphatase 84 U/L (45-117) 08/07/18 08:50 Total Protein 7.2 g/dl (6.4-8.2) 08/07/18 08:50 Albumin 4.3 g/dl (3.4-5.0) 08/07/18 08:50 POC Urine HCG, Qual Negative 08/06/18 09:52 RPR Titer Nonreactive (NONREACTIVE) 08/07/18 08:50 Labs noted. Assessment: 08/08/18 11:01 AOX3, in no respiratory distress full rom, ambulating in the unit. withdrawal symptoms. Plan: continue detox increase fluids
[2018-08-08] MEDS ORDERED: chlordiazePOXIDE HCL 10 MG CAPSULE PO PRN (17:00)
[2018-08-08] MEDS: chlordiazePOXIDE HCL 10 MG CAPSULE PO SCH ×2 (18:00→22:48)
[2018-08-08] MEDS: MONTELUKAST NA 10 MG TABLET PO SCH (22:48)
[2018-08-09] MEDS: chlordiazePOXIDE HCL 10 MG CAPSULE PO SCH ×3 (05:27→17:47)
[2018-08-09] MEDS: LEVOTHYROXINE 25 MCG, LEVOTHYROXINE 100 MCG PO SCH (06:06)
[2018-08-09] MEDS: metFORMIN HCL 500 MG TABLET (FP) PO SCH ×2 (06:06→17:47)
[2018-08-09] MEDS ORDERED: NICOTINE POLACRILEX 4 MG GUM BUC PRN (06:31)
[2018-08-09] MEDS: NICOTINE 21 MG/24 HOURS TOPICAL PATCH TD SCH (09:27)
[2018-08-09] MEDS: NAPROXEN 500 MG TABLET (FP) PO SCH ×2 (10:37→22:54)
[2018-08-09] MEDS: valACYclovir HCL 500 MG TABLET (FP) PO SCH ×2 (10:37→22:54)
[2018-08-09] MEDS: TRIAMCINOLONE ACET 0.5% CREAM 15 GM TUBE TP SCH ×2 (10:37→22:56)
--- NOTE | 2018-08-09 17:28 | PN ---
S CIWA - CIWA Score Nausea/Vomitin-No Nausea/No Vomiting Muscle Tremors: 2 Anxiety: 1-Mildly Anxious Agitation: 2 Paroxysmal Sweats: 2 Orientation: 0-Oriented Tacttile Disturbances: 0-None Auditory Disturbances: 0-None Visual Disturbances: 0-None Headache: 0-None Present CIWA-Ar Total Score: 7 BHS Progress Note (SOAP) Subjective: Interrupted sleep, anxious Objective: 08/09/18 17:25 Last Vital Signs Temp Pulse Resp BP Pulse Ox 97.8 F 79 18 134/84 08/09/18 14:27 08/09/18 14:27 08/09/18 14:27 08/09/18 14:27 Laboratory Tests 08/06/18 08/06/18 08/06/18 09:52 11:42 16:40 WBC RBC Hgb Hct MCV MCH MCHC RDW Plt Count MPV Absolute Neuts (auto) Neutrophils % Lymphocytes % Monocytes % Eosinophils % Basophils % Nucleated RBC % Platelet Estimate Platelet Comment Sodium Potassium Chloride Carbon Dioxide Anion Gap BUN Creatinine Est GFR (CKD-EPI)AfAm Est GFR (CKD-EPI)NonAf POC Glucometer 125 141 Random Glucose Calcium Total Bilirubin AST ALT Alkaline Phosphatase Total Protein Albumin POC Urine HCG, Qual Negative RPR Titer 08/07/18 08/07/18 08/07/18 06:53 08:50 08:50 WBC 4.9 RBC 3.84 Hgb 12.4 Hct 38.1 MCV 99.4 H MCH 32.3 MCHC 32.5 RDW 17.0 H Plt Count 253 D MPV 11.1 Absolute Neuts (auto) 2.5 Neutrophils % 50.4 Lymphocytes % 36.5 Monocytes % 7.4 Eosinophils % 4.5 Basophils % 1.2 Nucleated RBC % 0 Platelet Estimate Adequate Platelet Comment No clumping noted Sodium 144 Potassium 3.9 Chloride 107 Carbon Dioxide 26 Anion Gap 11 BUN 12 Creatinine 1.3 Est GFR (CKD-EPI)AfAm 54.62 Est GFR (CKD-EPI)NonAf 47.13 POC Glucometer 106 Random Glucose 105 Calcium 8.9 Total Bilirubin 0.4 AST 20 ALT 20 Alkaline Phosphatase 84 Total Protein 7.2 Albumin 4.3 POC Urine HCG, Qual RPR Titer 08/07/18 08/07/18 08/08/18 08:50 16:18 06:10 WBC RBC Hgb Hct MCV MCH MCHC RDW Plt Count MPV Absolute Neuts (auto) Neutrophils % Lymphocytes % Monocytes % Eosinophils % Basophils % Nucleated RBC % Platelet Estimate Platelet Comment Sodium Potassium Chloride Carbon Dioxide Anion Gap BUN Creatinine Est GFR (CKD-EPI)AfAm Est GFR (CKD-EPI)NonAf POC Glucometer 138 122 Random Glucose Calcium Total Bilirubin AST ALT Alkaline Phosphatase Total Protein Albumin POC Urine HCG, Qual RPR Titer Nonreactive 08/08/18 08/09/18 08/09/18 16:53 05:25 17:12 WBC RBC Hgb Hct MCV MCH MCHC RDW Plt Count MPV Absolute Neuts (auto) Neutrophils % Lymphocytes % Monocytes % Eosinophils % Basophils % Nucleated RBC % Platelet Estimate Platelet Comment Sodium Potassium Chloride Carbon Dioxide Anion Gap BUN Creatinine Est GFR (CKD-EPI)AfAm Est GFR (CKD-EPI)NonAf POC Glucometer 174 113 121 Random Glucose Calcium Total Bilirubin AST ALT Alkaline Phosphatase Total Protein Albumin POC Urine HCG, Qual RPR Titer Labs reviewed: creat 1.3, gfr 47.13, increased glucose Assessment: 08/09/18 17:26 Withdrawal symptoms Noted with prerenal azotemia and hyperglycemia Plan: Continue detox Prerenal azotemia: encouraged PO water intake, repeat BMP Hyperglycemia: due to DMT2; continue metformin, encouraged adherence to diabetic diet and decreasing sugary intake
[2018-08-09] MEDS: MONTELUKAST NA 10 MG TABLET PO SCH (22:54)
[2018-08-10] MEDS: chlordiazePOXIDE HCL 10 MG CAPSULE PO SCH (05:58)
[2018-08-10] MEDS: LEVOTHYROXINE 25 MCG, LEVOTHYROXINE 100 MCG PO SCH (06:00)
[2018-08-10] MEDS: metFORMIN HCL 500 MG TABLET (FP) PO SCH (06:01)
[2018-08-10 09:39] VITALS: BP 149/85; PULSE 83; TEMP 97.5
[2018-08-10] MEDS: valACYclovir HCL 500 MG TABLET (FP) PO SCH (10:13)
[2018-08-10] MEDS: NICOTINE 21 MG/24 HOURS TOPICAL PATCH TD SCH (10:14)
[2018-08-10] MEDS: NAPROXEN 500 MG TABLET (FP) PO SCH (10:14)
[2018-08-10] MEDS: TRIAMCINOLONE ACET 0.5% CREAM 15 GM TUBE TP SCH (10:35)
--- NOTE | 2018-08-10 11:05 | DS ---
[facility] Detox Discharge Summary Admission Date: 08/06/18 Discharge Date: 08/10/18 - History Present History: Alcohol Dependence, Opioid Dependence - Physical Exam Results Vital Signs: Vital Signs Temperature 97.5 F L 08/10/18 09:38 Pulse Rate 83 08/10/18 09:38 Respiratory Rate 18 08/10/18 09:38 Blood Pressure 149/85 08/10/18 09:38 O2 Sat by Pulse Oximetry (%) - Treatment Hospital Course: Detox Protocol Followed, Detoxed Safely, Responded well, Discharged Condition Good, Rehab Referral Accepted - Medication Discharge Medications: Ambulatory Orders Levothyroxine [Synthroid -] 125 mcg PO DAILY #30 tablet 03/11/17 Albuterol Sulfate Inhaler - [Ventolin HFA Inhaler -] 2 inh PO Q4H PRN #1 inhaler 08/10/18 Levothyroxine [Synthroid -] 125 mcg PO DAILY@0700 #30 tablet 08/10/18 Montelukast Na [Singulair -] 10 mg PO HS #30 tablet 08/10/18 Triamcinolone 0.5% Cream [Aristocort 0.5% Cream -] 1 applic TP BID #2 tube 08/10 Valacyclovir HCl [Valtrex -] 500 mg PO BID #90 tablet 08/10/18 metFORMIN HCL [Glucophage -] 500 mg PO BID #90 tablet 08/10/18 - Diagnosis (1) Heroin abuse Current Visit: Yes Status: Acute (2) Asthma Current Visit: Yes Status: Chronic Qualifiers: Asthma severity: mild Asthma complication type: uncomplicated (3) Eczema Current Visit: Yes Status: Chronic Qualifiers: Eczema type: unspecified Qualified Code(s): L30.9 - Dermatitis, unspecified (4) History of herpes simplex infection Current Visit: Yes Status: Chronic (5) Tendinitis of right foot Current Visit: No Status: Chronic (6) Use of cane as ambulatory aid Current Visit: No Status: Chronic (7) Alcohol dependence with uncomplicated withdrawal Current Visit: Yes Status: Chronic (8) Bipolar disorder Current Visit: No Status: Chronic (9) COPD (chronic obstructive pulmonary disease) Current Visit: Yes Status: Chronic Qualifiers: COPD type: emphysema (10) Cocaine dependence, uncomplicated Current Visit: Yes Status: Chronic (11) History of OCD (obsessive compulsive disorder) Current Visit: No Status: Chronic (12) Hypothyroidism Current Visit: Yes Status: Chronic Qualifiers: Hypothyroidism type: acquired Qualified Code(s): E03.9 - Hypothyroidism, unspecified (13) Opioid dependence with withdrawal Current Visit: Yes Status: Chronic (14) Rash and nonspecific skin eruption Current Visit: Yes Status: Chronic (15) Type 2 diabetes mellitus Current Visit: Yes Status: Chronic Qualifiers: Diabetes mellitus complication status: without complication - AMA Did Patient Leave Against Medical Advice: No (referred to [facility] inpatient rehab)
== END 2018-08-10 11:42 | disposition home or self-care (01) | DRG 773 ==
LOC: YASAS 09:14 → Y6N 11:44
PROVIDERS: ADMIT Surgery; ATTEND Surgery
PROC: HZ2ZZZZ Detoxification Services for Substance Abuse Treatment (ICD-10-PCS; principal; 2018-08-06)
DX: F11.23 Opioid dependence with withdrawal (principal); F10.230 Alcohol dependence with withdrawal, uncomplicated; F14.20 Cocaine dependence, uncomplicated; F31.9 Bipolar disorder, unspecified; E11.9 Type 2 diabetes mellitus without complications; Z79.84 Long term (current) use of oral hypoglycemic drugs; J44.9 Chronic obstructive pulmonary disease, unspecified; J45.20 Mild intermittent asthma, uncomplicated; E03.9 Hypothyroidism, unspecified; L30.9 Dermatitis, unspecified; R21 Rash and other nonspecific skin eruption; Z86.59 Personal history of other mental and behavioral disorders; Z86.19 Personal history of other infectious and parasitic diseases; R26.89 Other abnormalities of gait and mobility; Z99.89 Dependence on other enabling machines and devices
CPT/HCPCS: 36415; 80053; 81025; 82962; 85025; 86593